=== PATIENT | male | born 1965 | race African-American/Black ===

== ENCOUNTER 2016-09-03 21:29 | Emergency (ER) | payer OTHER, BC ==
[2016-09-03 21:37] VITALS: BP 147/87; PULSE 79; TEMP 98; BMI 29.8
[2016-09-03] MEDS ORDERED: IBUPROFEN 400 MG TABLET (FP) PO ONE (22:03)
[2016-09-03] MEDS ORDERED: IBUPROFEN 600 MG TABLET (FP) PO ONE (22:07)
--- NOTE | 2016-09-03 22:12 | PDOC ---
[id number] INJURY/EMPLOYEE Time Seen by Provider: 09/03/16 21:43 History Source: Patient Exam Limitations: No Limitations - History of Present Illness Initial Comments: 09/03/16 22:08 50 yr male history of DM presents with acute pain to right heel. 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 Denies any history of recent antibiotics, no travel, pt has NIDDM and anemia. no fever or chills. 09/03/16 22:12 Occurred: reports: this evening (7pm) Severity: Yes: moderate Lower Extremity Pain Location: right: heel Method of Injury: Yes: unknown Past History - Past Medical History Allergies/Adverse Reactions: Allergies Allergy/AdvReac Type Severity Reaction Status Date / Time chloroquine Allergy Verified 09/03/16 21:34 Anemia: Yes Diabetes: Yes - Surgical History Appendectomy: Yes - Psycho/Social/Smoking Cessation Hx Suicidal Ideation: No Smoking History: Never smoked Review of Systems - Review of Systems Able to Perform ROS?: Yes Is the patient limited Nepali proficient: No Constitutional: No: Symptoms Reported HEENTM: No: Symptoms Reported Respiratory: No: Symptoms reported Cardiac (ROS): No: Symptoms Reported ABD/GI: No: Symptoms Reported : No: Symptoms Reported Musculoskeletal: Yes: See HPI *Physical Exam - Vital Signs Last Vital Signs Temp Pulse Resp BP Pulse Ox 98 F 79 18 147/87 100 09/03/16 21:34 09/03/16 21:34 09/03/16 21:34 09/03/16 21:34 09/03/16 21:34 - Physical Exam General Appearance: Yes: Nourished, Appropriately Dressed HEENT: positive: EOMI, CHELE Musculoskeletal: positive: Normal Inspection Extremity: positive: Normal Capillary Refill, Normal Inspection, Tender ( achiles tendon, non boggy intact, pain with flexion and extension of the foot to the heel ) Procedures - Splinting Jed Bandage: yes, 4" ED Treatment Course - RADIOLOGY Radiology Studies Ordered: Category Date Time Status ANKLE & FOOT-RIGHT* [RAD] Stat Radiology 09/03/16 21:39 Ordered Medical Decision Making - Medical Decision Making 09/03/16 22:10 cc: heel pain right will give motrin xray bulky jed wrap and crutches follow with the orthopedist *DC/Admit/Observation/Transfer Diagnosis at time of Disposition: High ankle sprain Qualifiers: Encounter type: initial encounter Laterality: right Qualified Code(s): S93.431A - Sprain of tibiofibular ligament of right ankle, initial encounter - Discharge Dispostion Disposition: HOME Condition at time of disposition: Good - Referrals Referrals: Robinson Burgos MD [Primary Care Provider] - Russ Gustafson MD [Staff Physician] - - Patient Instructions Additional Instructions: follow with or next week take motrin as needed for pain use the jed wrap and crutches to ambulate no strenuous activity until cleared by the orthopedist - Post Discharge Activity Work/School Note: Back to Work
== END 2016-09-03 22:35 | disposition home or self-care (01) ==
LOC: JERFT 21:29
DX: S93.491A Sprain of other ligament of right ankle, initial encounter (principal); X50.1XXA Overexertion from prolonged static or awkward postures, initial encounter; Y93.89 Activity, other specified; Y92.234 Operating room of hospital as the place of occurrence of the external cause; Y99.0 Civilian activity done for income or pay
CPT/HCPCS: 73610-TC-RT; 73630-TC-RT; 99281-25

== ENCOUNTER 2023-11-11 01:20 | Emergency (ER) | payer OTHER, BC ==
[2023-11-11 01:26] VITALS: BP 145/81; PULSE 73; RESP 20; TEMP 97.5; BMI 29.8
[2023-11-11] MEDS ORDERED: LIDOCAINE 4% PATCH TP ONE (02:34)
[2023-11-11] MEDS ORDERED: ACETAMINOPHEN 325 MG TABLET (FP) ONE (02:34)
[2023-11-11] MEDS: ACETAMINOPHEN 500 MG TABLET (FP) PO ONE (02:39)
[2023-11-11] MEDS: LIDOCAINE 4% PATCH TP ONE (02:39)
[2023-11-11] MEDS ORDERED: LIDOCAINE PATCH REMOVAL MC SCH (22:00)
== END 2023-11-11 04:29 | disposition home or self-care (01) ==
LOC: JER 01:20
DX: M54.6 Pain in thoracic spine (principal); V43.52XA Car driver injured in collision with other type car in traffic accident, initial encounter
CPT/HCPCS: 72128-TC; 99284-25

== ENCOUNTER 2024-03-24 11:28 | Emergency (ER) | payer BC ==
[2024-03-24 11:35] VITALS: BP 147/82; PULSE 90; RESP 18; TEMP 98.5; BMI 29.8
[2024-03-24 13:21] LABS: THROAT:GRP A STREP DETECTED (NOTDETECTED)
[2024-03-24 14:09] LABS: HIV INTERPRETATION NEGATIVE (NEGATIVE)
== END 2024-03-24 12:49 | disposition home or self-care (01) ==
LOC: JERFT 11:28
DX: J22 Unspecified acute lower respiratory infection (principal); R05.9 Cough, unspecified; J02.0 Streptococcal pharyngitis; Z20.822 Contact with and (suspected) exposure to COVID-19
CPT/HCPCS: 0241U-QW; 36415; 86803; 87389; 87651; 99283-25